=== PATIENT | male | born 1990 | race Caucasian/White ===

== ENCOUNTER 2019-03-25 13:58 | Emergency (ER) | payer OTHER, SELFPAY ==
--- NOTE | ~2019-03-25 | XR_ITS ---
EXAMINATION: XR tibia fibula RT 2V DATE: 03/25/2019 15:01 INDICATION: Pain, bruising abrasions to the anterior right tibia and fibula post fall. TECHNIQUE: AP and lateral views of the right tibia and fibula were obtained on overlapping proximal a nd distal radiographs. COMPARISON: None. FINDINGS: Bone alignment is normal. No fracture. Joint spaces appear normal. No right ankle joint effusion. Sof t tissue and with subcutaneous edema along the anterior, medial and lateral aspects of the mid right lower leg. IMPRESSION: 1. No osseous abnormality. 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 No osseous abnormality.
[2019-03-25 14:20] VITALS: BP 148/83; PULSE 87; RESP 18; TEMP 37.2; O2SAT 100
--- NOTE | 2019-03-25 14:59 | ED.GENADULT ---
HPI - General Adult General Chief complaint: Extremity Injury, Lower Stated complaint: right santana injury Time Seen by Provider: 03/25/19 14:59 Source: patient and RN notes reviewed Mode of arrival: ambulatory Limitations: no limitations History of Present Illness HPI narrative: This is a 28 years old male presents to the office for an evaluation of right leg injury three days ago. He accidentally fell off of a stool when the stool landed on his chin. Denies head injury or trauma. He had skin abrasion on his chin. Denies any feeling ill. He is not diabetic. TD is up-to-date. Stated he has been walking on it. He has been taking ibuprofen for pain. Denies history of previous surgery or trauma to his right leg except sprained ankle here and there. Related Data Allergies Allergy/AdvReac Type Severity Reaction Status Date / Time No Known Allergies Allergy Verified 03/25/19 14:58 Review of Systems Review of Systems: Narrative: CONSTITUTIONAL: Denies fever or feeling ill CARDIOVASCULAR: Denies chest sore RESPIRATORY: Denies dyspnea GASTROINTESTINAL: Denies nausea, vomiting GENITOURINARY: Denies urinary symptoms or discharge SKIN: Denies rash MUSCULOSKELETAL: Denies acute back pain NEUROLOGIC: Denies lightheaded PMFSH Surgical History Surgical History History of incision and drainage Family History Family History Father Diabetes mellitus Unknown Diabetes mellitus Mother Patient unsure of family history Comments At time of signature, I agree with nursing past medical, surgical, social and family history. There is no relevant family history pertinent to the presenting complaint. Exam Narrative: Exam Narrative: GENERAL: This is a well-nourished, well-developed patient, in no apparent distress. CARDIOVASCULAR: Regular rate and rhythm without murmurs, gallops, or rubs. RESPIRATORY: Clear to auscultation. Breath sounds equal bilaterally. No wheezes, rales, or rhonchi. SKIN: warm, intact with no suspicious lesions or rash, good texture and turgor. NEURO: awake, alert, and oriented to person, place and time. There were no obvious focal neurologic abnormalities. EXTREMITIES: Patient is able to bear weight and ambulate with slight pain.Right santana noted vertical skin abrasion with slight tenderness to palpation; no erythema/warmth to touch. Right knee is with obvious asymmetry or deformity when comparing to the L. Patient is able to do a deep knee bend with symmetry., Fully extended knee, internal and external rotation. Nontender to palpate of the patella, no effusion. NO quadriceps tenderness or calf tenderness. Distal motor and neurovascular status intact. Right foot with normal plantar flexion. Course Vital Signs Vital signs: Vital Signs Temperature 98.9 F 03/25/19 14:20 Pulse Rate 87 03/25/19 14:20 Respiratory Rate 18 03/25/19 14:20 Blood Pressure 148/83 H 03/25/19 14:20 Pulse Oximetry 100 03/25/19 14:20 Temperature 98.9 F 03/25/19 14:20 Pulse Rate 87 03/25/19 14:20 Respiratory Rate 18 03/25/19 14:20 Blood Pressure 148/83 H 03/25/19 14:20 Pulse Oximetry 100 03/25/19 14:20 Medical Decision Making MDM Narrative Medical decision making narrative: Discharge instructions reviewed with patient, as well as provided in writing per nursing staff. The instructions also include specific and strict return/GO TO THE ER as well as f/u information. All questions have been answered, and the patient deny any further questions with discharge and discharge plan. Differential Diagnosis Differential Diagnosis: sprain, strain, contusion, fracture Vital Signs Vital Signs: Vital Signs Temperature 98.9 F 03/25/19 14:20 Pulse Rate 87 03/25/19 14:20 Respiratory Rate 18 03/25/19 14:20 Blood Pressure 148/83 H 03/25/19 14:20 Pulse Oximetry 100 03/25/19 14:20 Temper
== END 2019-03-25 15:25 | disposition home or self-care (01) ==
PROVIDERS: Emergency Provider Nurse Practitioner
DX: S80.811A Abrasion, right lower leg, initial encounter (principal); W17.89XA Other fall from one level to another, initial encounter; I10 Essential (primary) hypertension
CPT/HCPCS: 73590; 99213; G0463

== ENCOUNTER 2019-09-05 09:51 | Emergency (ER) | payer OTHER, SELFPAY ==
[2019-09-05 10:05] VITALS: BP 125/70; PULSE 86; RESP 14; TEMP 36.8; O2SAT 100
--- NOTE | 2019-09-05 10:12 | ED.SKABFB ---
HPI - Skin/Abscess/Foreign Bdy General Chief complaint: Skin/Abscess/Foreign Body Stated complaint: Cyst Time Seen by Provider: 09/05/19 10:10 Source: patient and RN notes reviewed Mode of arrival: ambulatory Limitations: no limitations History of Present Illness HPI narrative: 29-year-old male presents with concern for a cyst on his back. Reports he tender, red area that he noticed 6 days ago. Reports similar instance of a boil in his private area in January which he had to have drained and packing placed, he was also placed on antibiotic that time. He denies any fever, malaise, body aches. Denies any intervention. MD complaint: abscess/boil Related Data Allergies Allergy/AdvReac Type Severity Reaction Status Date / Time No Known Allergies Allergy Verified 09/05/19 10:13 Review of Systems Review of Systems: Narrative: CONSTITUTIONAL: Denies malaise, chills, sweats, or fever. CARDIOVASCULAR: Denies chest pain, palpitations, or edema. RESPIRATORY: Denies dyspnea. GASTROINTESTINAL: Denies nausea, vomiting, diarrhea SKIN: Reports multiple cyst on his back, tender MUSCULOSKELETAL: Denies myalgia. All systems reviewed & are unremarkable except as noted in HPI and below PMFSH Comments At time of signature, agree with nursing past medical, surgical, social and family history. There is no relevant family history pertinent to the presenting complaint Exam Narrative: Exam Narrative: GENERAL: Well-appearing, well-nourished, and in no acute distress. HEAD: Normocephalic EYES: PERRLA, conjunctivae clear ENT: Mucous membranes moist. NECK: Supple. CHEST: No respiratory distress. Speaks in full sentences. HEART: Regular rate and rhythm. SKIN: Warm, dry. 3 cm area of induration, erythema, tenderness, with mild fluctuation noted to the mid back. NEURO: Alert and oriented x3. PSYCH: Normal mood and affect Course Course Emergency Course: Patient is aware of diagnosis, understands and agrees to treatment plan. Anticipatory guidance given. Patient agrees to follow-up as directed and is aware of reasons to seek care at the emergency department. Portions of this record may have been created with voice recognition software Vital Signs Vital signs: Vital Signs Temperature 98.3 F 09/05/19 10:05 Pulse Rate 86 09/05/19 10:05 Respiratory Rate 14 09/05/19 10:05 Blood Pressure 125/70 09/05/19 10:05 Pulse Oximetry 100 09/05/19 10:05 Temperature 98.3 F 09/05/19 10:05 Pulse Rate 86 09/05/19 10:05 Respiratory Rate 14 09/05/19 10:05 Blood Pressure 125/70 09/05/19 10:05 Pulse Oximetry 100 09/05/19 10:05 Reviewed. Procedures Abscess I/D back: Date of Incision: 09/05/19 Time of Incision: 10:20 Local Anesthetic: lidocaine 1% Amount of anesthesia used (mL): 2 Technique: incised with #11 blade Amount of fluid expressed (mL): 3 Irrigation: Yes Packing used?: none I&D Results: Pus MDM - Skin/Abscess/Foreign Bdy MDM Narrative Medical decision making narrative: Exam findings show no acute concerns or changes; patient is non-toxic appearing and is in no distress. Patient is appropriate for outpatient treatment and follow-up. Differential Diagnosis Differential diagnosis: Likely abscess of skin or subcutaneous tissue, cellulitis and other (Folliculitis) Critical Care Time Critical Care Time Critical Care Time: No Discharge Plan Discharge Clinical Impression: Abscess of back Patient Disposition: Home, Self-Care Condition: Stable Instructions: Antibiotic Form, Abscess (ED) Additional Instructions: You have had an abscess drained at [facility]. You may shower - let the soapy water clean your wound, do not scrub it. Keep your wound covered to prevent transmission of infection to other people. Go to the Emergency Department immediately if you develop any of the following symptoms: Fevers, Increased redness or swelling around where
== END 2019-09-05 10:47 | disposition home or self-care (01) ==
PROVIDERS: Emergency Provider Nurse Practitioner
DX: L02.212 Cutaneous abscess of back [any part, except buttock and flank] (principal)
CPT/HCPCS: 10060; 87070; 87075; 87076; 87205; 99213; G0463

== ENCOUNTER 2022-06-01 10:51 | Emergency (ER) | payer OTHER, SELFPAY ==
[2022-06-01 10:56] VITALS: BP 151/85; PULSE 98; RESP 20; TEMP 36.6; O2SAT 100
--- NOTE | 2022-06-01 11:20 | ED.GENADULT ---
HPI - General Adult General Chief complaint: Extremity Injury, Upper Stated complaint: right hand finger / right ear Time Seen by Provider: 06/01/22 11:21 Source: patient, RN notes reviewed and old records reviewed Mode of arrival: ambulatory Limitations: no limitations History of Present Illness HPI narrative: 32 year old male who presents to [facility] with complaints of injury to his right middle finger occurring 3 weeks ago while wrestling with child. Patient reports that he has intermittent discomfort to his right middle finger especially noted when he first awakens in the morning. Patient denies any numbness or tingling to his right middle finger, has full movement of right middle finger with no swelling or redness noted, no obvious deformity.Patient has not taken any OTC medication for his discomfort or applied any ice to right middle finger. Patient also reports some right ear discomfort, denies any cough or sinus congestion or drainage, denies any discharge from his ear, he denies any fevers. MD complaint: right middle finger, right ear Onset (ago): week(s) (3 weeks right middle finger, right ear otalgia 2 days.) Severity scale (1-10): 3 Treatments prior to arrival: none Related Data Home Medications Medication Instructions Recorded Confirmed No Home Medications 06/01/22 06/01/22 Allergies Allergy/AdvReac Type Severity Reaction Status Date / Time No Known Allergies Allergy Verified 06/01/22 11:03 Review of Systems Review of Systems: CONSTITUTIONAL: Denies fever, chills, or sweats. EYES: Denies visual changes, redness, or discharge. ENT: Denies rhinorrhea, congestion, sore throat, reports some right ear otalgia. CARDIOVASCULAR: Denies chest pain, palpitations, or edema. RESPIRATORY: Denies cough or dyspnea. GASTROINTESTINAL: Denies abdominal pain, nausea, vomiting, or diarrhea. GENITOURINARY: Denies dysuria or hematuria. SKIN: Denies rash or itching. MUSCULOSKELETAL: Denies back pain,right middle finger discomfort intermittent for 3 weeks, or myalgia. NEUROLOGIC: Denies headache, numbness, or weakness. PSYCHIATRIC: Denies anxiety or depression. All systems reviewed & are unremarkable except as noted in HPI and below PMFSH Surgical History Surgical History History of incision and drainage Family History Family History Father Diabetes mellitus Unknown Diabetes mellitus Mother Patient unsure of family history Comments At time of signature, agree with nursing past medical, surgical, social and family history. There is no relevant family history pertinent to the presenting complaint Exam Narrative: GENERAL: Well-appearing, well-nourished, and in no acute distress. HEAD: Normocephalic, atraumatic. EYES: PERRLA and EOMI. ENT: Nares clear, no rhinorrhea or epistaxis. Mucous membranes moist.Bilateral ears have some excess wax,TM's normal ear canals normal, throat pink with no swelling NECK: Supple.no lymphadenopathy CHEST: Clear to auscultation. No respiratory distress.SAO2 100% on room air HEART: Regular rate and rhythm. No murmur heard. Normal peripheral pulses. ABDOMEN: Soft, nontender, nondistended, normal active bowel sounds. EXTREMITIES: Normal range of motion. No edema. right middle finger has full ROM, no swelling or ecchymosis noted, normal sensation and circulation to right middle finger, no obvious deformity of finger. SKIN: Warm, dry, no rash. NEURO: No focal deficits. Alert and oriented x3. Course Course Emergency Course: Patient is aware of diagnosis, understands and agrees to treatment plan.? Anticipatory guidance given.? Patient agrees to follow-up as directed and is aware of reasons to seek care at the emergency department. Portions of this record may have been created with voice recognition software Level of Care: Express Care Visit Vital Signs Vital signs: Vital Si
== END 2022-06-01 11:35 | disposition home or self-care (01) ==
PROVIDERS: Emergency Provider Registered Nurse
DX: S63.612A Unspecified sprain of right middle finger, initial encounter (principal); X58.XXXA Exposure to other specified factors, initial encounter; Y93.83 Activity, rough housing and horseplay; H92.01 Otalgia, right ear
CPT/HCPCS: 99212; G0463